=== PATIENT | male | born 1995 | race Caucasian/White ===

== ENCOUNTER 2018-08-07 15:28 | Outpatient (REF) | payer MEDICAID, SELFPAY ==
[2018-08-07 19:32] LABS: HCT 47.8 % (40.0-50.0); HGB 16.4 g/dL (13.5-17.5); Mean Corp. HGB Concentration 34.3 g/dL (32.0-36.0); Mean Corpuscular Hemoglobin 30.7 pg (27.0-33.0); Mean Corpuscular Volume 89.3 fL (80-95); Platelet Count 181 x1000/uL (130-400); RBC 5.35 m/cumm (4.50-6.00); White Blood Cell Count 5.96 k/cumm (4.4-10.8)
[2018-08-07 20:56] LABS: ALT 32 U/L (12-78); AST 19 U/L (15-37); Albumin 4.1 g/dL (3.4-5.0); Alkaline Phosphatase 71 U/L (46-116); Anion Gap 7.4 mmol/L (3-11); BUN 15 mg/dL (7-18); Bilirubin, Total 0.4 mg/dL (0.2-1.0); CO2 29.6 mmol/L (21.0-32.0); CREATININE 0.94 mg/dL (0.70-1.30); Calcium 9.3 mg/dL (8.5-10.1); Chloride 102 mmol/L (98-107); Glucose 100 mg/dL (70-100); Potassium 4.3 mmol/L (3.5-5.1); Sodium 139 mmol/L (136-145); Total Protein 7.9 g/dL (6.4-8.2)
== END 2018-08-07 15:48 ==
LOC: NCHCN 15:28
PROVIDERS: PCP Internal Medicine; Visit Provider Physician Assistant Medical
DX: R10.11 Right upper quadrant pain (principal); R79.89 Other specified abnormal findings of blood chemistry
CPT/HCPCS: 80053; 85027

== ENCOUNTER 2020-05-09 21:17 | Outpatient (REF) | payer MEDICAID, SELFPAY ==
[2020-05-12 05:01] LABS: Patient Race White; SARS-CoV-2 RNA Undetected (Undetected); SARS-CoV-2 Specimen Source Nasal
== END 2020-05-09 21:37 ==
LOC: NCHCN 21:17
PROVIDERS: PCP Internal Medicine; Visit Provider Physician Assistant
DX: Z20.828 Contact with and (suspected) exposure to other viral communicable diseases (principal)
CPT/HCPCS: U0003

== ENCOUNTER 2021-10-06 11:32 | Emergency (ER) | payer MEDICAID, SELFPAY ==
[2021-10-06 11:39] VITALS: BP 143/92; PULSE 76; RESP 16; TEMP 37.2; O2SAT 100
--- NOTE | 2021-10-06 12:17 | ED.GENADUL_ITS ---
Discharge Plan Disposition Patient Disposition: HOME Condition: Improving Discharge Details Clinical Impression: Opiate withdrawal Primary Care Provider: Rogelio Casas ED Provider: Wayne King Home Meds and New Rx's Prescriptions: New loperamide [Imodium A-D] 2 mg capsule 2 mg PO Q6H PRN (Reason: loose stool) Qty: 20 0RF clonidine HCl 0.1 mg tablet 0.1 mg PO BID 2 Days Qty: 5 0RF Rx Instructions: May use 0.2 mg x 1 dose, then 0.1 mg every 12 hours x3 doses, then stop ondansetron HCl 4 mg tablet 4 mg PO Q6H PRN (Reason: nausea and vomiting) Qty: 10 0RF Continued lisinopril 10 mg Tablet 10 mg PO DAILY Qty: 30 0RF Discharge Instructions Additional Instructions: Take clonidine 0.2 mg this evening and then 0.1 mg every 12 hours until gone. Zofran as needed for nausea. Imodium as needed for loose stool. Please begin your lisinopril tomorrow and take daily. We have asked our care managers to arrange a follow-up for you to establish local primary care. Follow-up with economic services & the rehabilitation team as planned. Medical Decision Making This is a 26-year-old male who presents on referral from a local horse riding coach or instructor. He has a history of intermittent opiate addiction, most recently prescribed Subutex 12 mg tablets at the [facility]. He recently week located to [place], has been homeless, without his medication, and buying fentanyl on the street which she has been snorting. His last use was yesterday. Today complains of nausea, vomiting, prickling of the skin and loose stool similar to previous episodes of opiate withdrawal. He does have a history of hypertension for which he takes lisinopril and has not had that medication either. Patient given Ativan for anxiolysis, Zofran, as well as clonidine and Imodium. He was seen by our psychiatric social worker supervisor rn complex care. Patient has arrangements to proceed to economic services, he is given a bus reschedule, and I will prescribe him clonidine, Zofran, further Imodium to assist in his withdrawal management. He has plans to follow-up with recovery services as well. HPI General Mode of arrival: ambulatory . Date/Time Provider Initiated Documentation: 10/06/21 11:33 . Limitations to Documentation: no limitations . Information obtained by: patient . History of Present Illness 26 year old M presents to the emergency department with the chief complaint of Opiate withdrawal, described as moderate, Patient reports no radiation. Patient started experiencing this day(s) and it has been intermittent. improves with No relieving factors improve symptom(s), No exacerbating factors reported . Patient notes loss of appetite and nausea/vomiting; denies confusion, cough, headaches, shortness of breath, syncope and weakness. Patient did receive the following treatments prior to arrival, none Related Data Home Medications Medication Instructions Recorded Confirmed clonidine HCl 0.1 mg tablet 0.1 mg PO BID 2 Days #5 tab 10/06/21 lisinopril 10 mg tablet 10 mg PO DAILY #30 tab 10/06/21 loperamide 2 mg capsule (Imodium 2 mg PO Q6H PRN #20 cap 10/06/21 A-D) ondansetron HCl 4 mg tablet 4 mg PO Q6H PRN #10 tab 10/06/21 Previous Rx's Medication Instructions Recorded clonidine HCl 0.1 mg tablet 0.1 mg PO BID 2 Days #5 tab 10/06/21 lisinopril 10 mg tablet 10 mg PO DAILY #30 tab 10/06/21 loperamide 2 mg capsule (Imodium 2 mg PO Q6H PRN #20 cap 10/06/21 A-D) ondansetron HCl 4 mg tablet 4 mg PO Q6H PRN #10 tab 10/06/21 Allergies Allergy/AdvReac Type Severity Reaction Status Date / Time sertraline Allergy Intermediate Skin Rash Unverified 10/06/21 11:48 naloxone Allergy Unverified 10/06/21 11:48 shellfish Allergy Uncoded 10/06/21 11:49 General Stated Complaint: DrugWithdr/MAT JEFF: 3 Review of Systems Narrative: No headache. Not actively vomiting. Takes lisinopril which she is run out of. Not recently ill other than withdrawal symptoms. 8 systems reviewed and otherwise negative. PFSH All Active Problems (Updated 10/06/21 @ 12:22 by aWyne King MD) Opiate withdrawal (Acute) Social History Smoking/Tobacco Use Status: Current every day Smoking risk assessment performed?: Yes Alcohol Intake: former Drug use: Current Sobriety Substance use type: heroin and opiates Exam Narrative Exam Narrative: GEN: awake, alert, oriented 3. Pleasant, well groomed, interactive. HEAD: Normocephalic, atraumatic ENT: Mucous membranes moist, oropharynx unremarkable, External ear exam unremarkable EYES: PERRL, EOMI NECK: Full ROM, no DANIS, no menigismus CHEST/RESP: Nontender, clear to auscultation bilateral, no wheeze/rhonchi/rales CARDIOVASCULAR: RRR, no murmur, rub saniya. 2+ Rad pulse bilateral ABDOMEN: Soft, nontender, no mass. +Bowel sounds EXT: Full ROM, no edema, no rash Neuro: Grossly normal neurologic exam, conversant, interactive. Psych: Speech fluent, thoughts congruent, affect normal Course Vital Signs Vital signs: Vital Signs Temperature 37.2 C 10/06/21 11:39 Pulse 76 10/06/21 11:39 Respiratory Rate 16 10/06/21 11:39 Blood Pressure 143/92 H 10/06/21 11:39 Pulse Oximetry 100 10/06/21 11:39 Temperature 37.2 C 10/06/21 11:39 Temperature Source Temporal Artery Scan 10/06/21 11:39 Pulse 76 10/06/21 11:39 Respiratory Rate 16 10/06/21 11:39 Respiratory Effort 10/06/21 11:39 Blood Pressure 143/92 H 10/06/21 11:39 Blood Pressure Position Sitting 10/06/21 11:39 Pulse Oximetry 100 10/06/21 11:39 Oxygen Delivery Method Room Air 10/06/21 11:39 Oxygen Flow Rate 0 10/06/21 11:39 Pain Level 8 10/06/21 11:39 Comment 10/06/21 11:39
--- NOTE | 2021-10-06 12:23 | NUR.NOTE ---
Nursing Note: Referral given to Care Management needs PCP, establish care, routine follow up. Phuong Gomez
[2021-10-06] MEDS: Ondansetron O.D.T. 4 MG TABEF PO (12:28)
[2021-10-06] MEDS: LORazepam 1 MG TAB PO (12:28)
[2021-10-06] MEDS: Loperamide 2 MG CAP 4 MG PO (12:28)
[2021-10-06] MEDS: cloNIDine 0.1 MG TAB 0.2 MG PO (12:28)
--- NOTE | 2021-10-07 09:35 | PDOC.ERCMPRO ---
- If Service Date Differs Date of service: 10/06/21 Time of Service: 11:00 Care Management Progress Note Louis presents in the ED for opiate withdrawal. At the request of ED provider, YUAN meets with Louis to offer resources. Louis states he is currently homeless but is going to [facility] after he is discharged from the hospital to obtain their assistance in finding housing. He is also planning on meeting with someone from [facility] this afternoon to enlist their help in finding employment. Louis is already connected with a [facility] Information Assurance Officer and he has an appointment scheduled at [facility] next week. Louis has Medicaid and he has a PCP at [facility]. The only other need he identifies is a lack of income. We discuss that both [facility] and [facility] can assist with financial support. YUAN provides him with an [facility] bus schedule as he will be taking the [facility] shuttle [facility] his discharge from [facility].
== END 2021-10-06 12:43 | disposition home or self-care (01) ==
PROVIDERS: Emergency Provider Emergency Medicine; PCP Internal Medicine
DX: F11.23 Opioid dependence with withdrawal (principal)
CPT/HCPCS: 99283